=== PATIENT | female | born 1990 | race Caucasian/White ===

== ENCOUNTER → 2016-08-20 | Outpatient (CLI) | payer BC ==
[2016-08-20 15:18] LABS: BASO % 0.1 %; BASO ABS # 0.01 K/uL (0-0.2); COMPLETE YES; EOS % 1.1 %; HEMATOCRIT 39.8 % (37-47); IG% 0.2 %; LYMPH ABS # 1.24 K/uL (1.2-3.4); MEAN CELL VOLUME 78.8 fL (80-100); MEAN CORPUSCULAR HEMOGLOBIN 26.5 pg (25-34); MEAN CORPUSCULAR HGB CONC 33.7 g/dl (32-36); MEAN PLATELET VOLUME 10.9 fL (7.4-10.4); MONO % 5.4 %; NEUT % 78.2 %; PLATELET COUNT 178 K/uL (130-400); RED BLOOD COUNT 5.05 M/uL (4.2-5.4); WHITE BLOOD COUNT 8.27 K/uL (4.8-10.8)
[2016-08-20 15:46] LABS: URINE APPEARANCE CLEAR (CLEAR); URINE BILIRUBIN NEG (NEG); URINE COLOR DK YELLOW; URINE NITRITE NEG (NEG); URINE PH 6.5 (4.5-7.5); URINE SPECIFIC GRAVITY 1.023 (1.000-1.030); UROBILINOGEN NEG (NEG)
[2016-08-20 15:53] LABS: MANUAL MICROSCOPIC REQUIRED? NO; REVIEW REQ? NO
== END | disposition home or self-care (01) ==
LOC: C.LAB1850 12:57
PROVIDERS: ATTEND Obstetrics & Gynecology
DX: Z34.81 Encounter for supervision of other normal pregnancy, first trimester (principal)

== ENCOUNTER → 2016-08-20 | Outpatient (CLI) | payer BC ==
[2016-08-24 10:49] LABS: CHLAMYDIA TRACH RNA*** NOT DETECTED (NOT DETECTED); GC (NEIS GONORRHOEAE)RNA** NOT DETECTED (NOT DETECTED)
== END | disposition home or self-care (01) ==
LOC: C.LABSPEC 16:51
PROVIDERS: ATTEND Obstetrics & Gynecology
DX: Z34.81 Encounter for supervision of other normal pregnancy, first trimester (principal)

== ENCOUNTER → 2016-12-25 | Outpatient (CLI) | payer BC ==
[2016-12-25 14:38] LABS: HEMATOCRIT 32.8 % (37-47)
[2016-12-25 15:04] LABS: GTGD 50 Grams
[2016-12-25 16:13] LABS: URINE APPEARANCE TURBID (CLEAR); URINE BILIRUBIN NEG (NEG); URINE COLOR YELLOW; URINE EPITHELIAL CELL AUTO >30 /lpf (0-5); URINE NITRITE NEG (NEG); URINE PH >= 9.0 (4.5-7.5); URINE SPECIFIC GRAVITY 1.021 (1.000-1.030); UROBILINOGEN NEG (NEG)
[2016-12-25 16:15] LABS: MANUAL MICROSCOPIC REQUIRED? NO; REVIEW REQ? NO
[2016-12-25 16:16] LABS: SULFASALICYLIC ACID NEG (NEG)
== END | disposition home or self-care (01) ==
LOC: C.LAB1850 12:13
PROVIDERS: ATTEND Obstetrics & Gynecology
DX: Z34.82 Encounter for supervision of other normal pregnancy, second trimester (principal); Z3A.00 Weeks of gestation of pregnancy not specified

== ENCOUNTER → 2017-01-08 | Outpatient (CLI) | payer BC | END | disposition home or self-care (01) | LOC: C.LAB1850 08:13 | PROVIDERS: ATTEND Obstetrics & Gynecology | DX: O28.1 Abnormal biochemical finding on antenatal screening of mother (principal) ==

== ENCOUNTER → 2017-02-12 | Outpatient (CLI) | payer BC | END | disposition home or self-care (01) | LOC: C.LABSPEC 14:42 | PROVIDERS: ATTEND Obstetrics & Gynecology | DX: Z34.83 Encounter for supervision of other normal pregnancy, third trimester (principal) ==

== ENCOUNTER 2017-03-09 06:50 | Inpatient (IN) | payer BC ==
[~2017-03-09] VITALS: Ht 152.4 cm; Wt 71.8 kg
[2017-03-09] MEDS ORDERED: LACTATED RINGER'S 1000ML 1,000 ML IV PRN (07:44)
[2017-03-09] MEDS ORDERED: LACTATED RINGER'S 1000ML 1,000 ML IV SCH (07:44)
[2017-03-09] MEDS ORDERED: PENICILLIN G POTASSIUM IV 6 MU in DEXTROSE 5% 250ML 250 ML IV ONE (08:00)
[2017-03-09 08:09] LABS: HEMATOCRIT 34.3 % (37-47); HEMOGLOBIN 10.9 g/dL (12.0-16.0); MEAN CELL VOLUME 69.7 fL (80-100); MEAN CORPUSCULAR HEMOGLOBIN 22.2 pg (25-34); MEAN CORPUSCULAR HGB CONC 31.8 g/dl (32-36); PLATELET COUNT 181 K/uL (130-400); RED CELL DISTRIBUTION WIDTH SD 42.7 fL (36.4-46.3); WHITE BLOOD COUNT 12.19 K/uL (4.8-10.8)
[2017-03-09 09:28] VITALS: Ht 152.4 cm; Wt 71.8 kg
[2017-03-09] MEDS ORDERED: PRENTAB26 PO (09:34)
[2017-03-09] MEDS: PENICILLIN G POTASSIUM IV 3 MU in DEXTROSE 5% 100ML 100 ML IV PRN ×2 (13:11→17:49)
[2017-03-09] MEDS ORDERED: LACTATED RINGER'S 1000ML 500 ML IV PRN ×3 (17:07→22:09)
[2017-03-09] MEDS ORDERED: OXYTOCIN 30 UNITS/500ML NSS IV PRN (17:15)
[2017-03-09] MEDS ORDERED: BUPIVACAINE 0.25% 30 ML VIAL ONE (17:21)
[2017-03-09] MEDS ORDERED: EpHEDrine SULFATE INJ 50 MG/ML AMP ONE (17:21)
[2017-03-09] MEDS ORDERED: FENTANYL 2MCG/ML ROPIV 1.25MG/ML 100ML BAG EPI ONE (17:21)
[2017-03-09] MEDS ORDERED: FENTANYL CITRATE INJ 50 MCG/1 ML 2 ML VIAL ONE (17:22)
[2017-03-09] MEDS ORDERED: NALOXONE HCL INJ 1 MG in SODIUM CHLORIDE 0.9% 1000ML 1,000 ML IV PRN ×2 (18:25→22:09)
[2017-03-09] MEDS ORDERED: ONDANSETRON INJ 2 MG/ML 2 ML VIAL IV PRN ×2 (18:30→22:15)
[2017-03-09] MEDS ORDERED: NALOXONE HCL INJ 0.4 MG/1 ML VIAL/CARP IV PRN (18:30)
[2017-03-09] MEDS ORDERED: FENTANYL 2MCG/ML ROPIV 1.25MG/ML 100ML BAG EPI PRN (18:30)
[2017-03-09] MEDS ORDERED: NALBUPHINE HCL INJ 10 MG/ML 1ML AMP IV PRN ×2 (18:30→22:15)
[2017-03-09] MEDS ORDERED: DiphenhydrAMINE HCL 50 MG/ML VIAL IV PRN ×3 (18:30→22:15)
[2017-03-09] MEDS ORDERED: EpHEDrine SULFATE INJ 50 MG/ML AMP IV PRN ×2 (18:30→22:15)
[2017-03-09] MEDS ORDERED: PROMETHAZINE HCL INJ 6.25 MG in SODIUM CHLORIDE 0.9% 50ML 50 ML IV PRN ×2 (18:30→22:15)
[2017-03-09] MEDS ORDERED: LACTATED RINGER'S 1000ML 1,000 ML IV ONE (20:42)
[2017-03-09] MEDS ORDERED: CARBOPROST TROMETHAMINE 250 MCG/ML AMP ONE (20:44)
[2017-03-09] MEDS ORDERED: CEFAZOLIN IV 2,000 MG in SYRINGE 0 ML IV STA (20:50)
[2017-03-09] MEDS ORDERED: CITRIC ACID/SODIUM CITRATE 15 ML UDC ONE (20:58)
[2017-03-09] MEDS ORDERED: MoRPHine SULFATE PF 1 MG/ML 10 ML AMP/VIAL ONE (21:22)
[2017-03-09] MEDS ORDERED: ONDANSETRON INJ 2 MG/ML 2 ML VIAL ONE (21:47)
[2017-03-09] MEDS ORDERED: KETOROLAC TROMETHAMINE 30 MG/ML VIAL ONE (21:47)
[2017-03-09] MEDS ORDERED: OXYTOCIN INJ 10 UNITS/ML VIAL ONE (21:47)
[2017-03-09] MEDS ORDERED: PHENYLEPHRINE 100MCG/ML 5ML SYR ONE (21:47)
[2017-03-09] MEDS ORDERED: LIDOCAINE/EPINEPHRINE 2% 1:200,000 20 ML SDV ONE (21:47)
--- NOTE | 2017-03-09 21:57 | [facility] Post Operative Brief Note ---
Immediate Operative Summary Operative Date Mar 09, 2017. Pre-Operative Diagnosis 1. Term 2. Previous section 3. Failed Post-Operative Diagnosis Same as preop Procedure(s) Performed Repeat section Surgeon Dr. Caceres Pop Singer Surgeon(s) Linnea POON Estimated Blood Loss 800ML Findings viable male , Apgars 8/9, weight of 8 lbs, art/venous gasses pending, normal appearing tubes and ovaries bilaterally Fluids (cc crystalloids) 1400 Specimens 1. Cord blood 2. Cord blood gases 3. Placenta-EXAM Drains Bravo to gravity Anesthesia Epidural Complication(s) None Disposition L&D
[2017-03-09] MEDS ORDERED: SUPERCREAM 0.870 % 15GM JAR EXT PRN (22:00)
[2017-03-09] MEDS ORDERED: HYDROCORTISONE ACETATE 25 MG SUPP PR PRN (22:00)
[2017-03-09] MEDS ORDERED: LANOLIN OINT EXT PRN (22:00)
[2017-03-09] MEDS ORDERED: DIPHTHERIA/TETANUS/PERTUSSIS 0.5 ML SYR/VIAL IM. ONE (22:00)
[2017-03-09] MEDS ORDERED: BENZOCAINE 20% AER SPR 82.5 GM CAN EXT PRN (22:00)
[2017-03-09] MEDS ORDERED: NALOXONE HCL INJ 0.08 MG in SYRINGE 1.8 ML IV PRN (22:09)
[2017-03-09] MEDS ORDERED: SODIUM CHLORIDE 0.9% 1000ML 1,000 ML IV PRN (22:09)
[2017-03-09] MEDS ORDERED: NO NARCOTICS OR SEDATIVES SCH (22:15)
[2017-03-09] MEDS ORDERED: MoRPHine SULFATE 2 MG/ML CARP IV PRN (22:15)
[2017-03-09] MEDS ORDERED: MoRPHine SULFATE PF 1 MG/ML 10 ML AMP/VIAL EPI PRN (22:15)
[2017-03-09] MEDS ORDERED: NALOXONE HCL 0.4 MG/1 ML VIAL/CARP IV PRN (22:15)
[2017-03-09] MEDS ORDERED: MEPERIDINE HCL 25 MG/ML CARP IV PRN (22:15)
[2017-03-09] MEDS ORDERED: DC INTRASPINAL MORPHINE SCH (22:15)
[2017-03-10] VITALS (20 sets, daily range): BP systolic 103–115; BP diastolic 65–68; PULSE 71–92; TEMP 36.7–37.5; O2SAT 95–98
[2017-03-10] MEDS: OXYTOCIN INJ 20 UNITS in LACTATED RINGER'S 1000ML 1,000 ML IV SCH ×2 (00:04→08:23)
--- NOTE | 2017-03-10 00:55 | Anesthesia Procedure Note ---
Anesthesia Epidural Removal Nt Date & Time Mar 10, 2017 at 00:55 Vital Signs Pain Intensity: 8.0 Notes Mental Status: alert / awake / arousable, participated in evaluation Nausea / Vomiting: adequately controlled Pain: adequately controlled Airway Patency, RR, SpO2: stable & adequate BP & HR: stable & adequate Hydration State: stable & adequate Neuraxial Anesthesia: was administered Anesthetic Complications: no major complications apparent, pt satisfied with anesthetic care Epidural: removed without complications, with tip intact
--- NOTE | 2017-03-10 00:55 | Anesthesiology Progress Note ---
Anesthesia Post Op Note Date & Time Mar 10, 2017 at 00:55 Vital Signs Pain Intensity: 8.0 Notes Mental Status: alert / awake / arousable, participated in evaluation Pt Amnestic to Procedure: Yes Nausea / Vomiting: adequately controlled Pain: adequately controlled Airway Patency, RR, SpO2: stable & adequate BP & HR: stable & adequate Hydration State: stable & adequate Neuraxial Anesthesia: was administered, sensory block is resolving Anesthetic Complications: no major complications apparent
--- NOTE | 2017-03-10 03:06 | OPERATIVE REPORT ---
DATE OF OPERATION: 03/09/2017 PREOPERATIVE DIAGNOSES: 1. Term . 2. Previous section. 3. Failed vaginal after . POSTOPERATIVE DIAGNOSES: Same. PROCEDURE PERFORMED: Repeat low cervical transverse section. SURGEON: Nii Caceres MD ANESTHESIA: Epidural. FINDINGS: Viable male with Apgars of 8 and 9, weight of 8 pounds 0 ounces. Arterial and venous cord gases are pending. Normal appearing tubes and ovaries bilaterally. PROCEDURE IN DETAIL: The patient was taken to the operating room and after epidural anesthesia, was placed in the supine position and draped and prepped in the usual fashion. Pfannenstiel type incision through previous surgical scar was made. Underlying subcutaneous tissue was dissected down to the ventral abdominal fascia, which was nicked and opened in a horizontal manner. Preperitoneal fascia was dissected away until the peritoneal cavity was entered and opened in a vertical manner. The peritoneum overlying the uterus was elevated, opened in a semi-lunar fashion, the inferior margin of which was taken down creating the bladder flap. Uterus was entered sharply and extended in a semi-lunar fashion manually. Viable male was delivered. Cord was clamped and cut and the baby was passed off to pediatrics who was in attendance for the delivery. Cord gases, cord blood samples obtained. Placenta was delivered manually and the uterus was exteriorized. The uterine cavity was wiped cleaned of any residual blood tissue and/or clot. The uterine incision was then closed with 2 layers of 4-0 Vicryl, the first a running locking stitch, the second an imbricating stitch. Hemostasis was achieved and the uterus was returned to the pelvic cavity. The paracolic gutters were cleared bilaterally of any blood tissue and/or clot. The uterine incision was then copiously irrigated with 1000 mL of normal saline. Incision was inspected for hemostasis, which was present. Sponge and needle count was correct. The rectus muscle was then plicated in the midline with a running 2-0 Vicryl stitch. The fascia was closed laterally with a running 0 Vicryl suture. Subcutaneous tissue was irrigated with warm saline and the skin incision was closed with a 4-0 Vicryl subcuticular stitch. Sterile dressing was applied and patient was taken to the recovery room in satisfactory condition. I attest to the content of the Intraoperative Record and any orders documented therein. Any exception s are noted below.
[2017-03-10] MEDS: KETOROLAC TROMETHAMINE 30 MG/ML VIAL IV. PRN ×2 (05:07→11:14)
--- NOTE | 2017-03-10 05:45 | NUR ---
Patient up from bed , stood by the bed for about 2 minutes and sat back on the bed and dangling feet on bed side. Patient tolerated activity well
[2017-03-10] MEDS ORDERED: CEFAZOLIN IV 2,000 MG in SYRINGE 0 ML IV SCH (06:00)
--- NOTE | 2017-03-10 07:00 | OB/GYN Progress Note ---
FACILITIES SUPERVISOR Progress Note Date of Service Mar 10, 2017. Subjective conversation w/ patient, conversation w/ family, physical exam, chart review, lab review Ambulation: limited ambulation Voiding: saldana catheter in place Passing Gas: Yes Diet Tolerance: Clear Liquids Lochia: Small Feeding Type: Breast Feeding Review of Systems Constitutional: No fever, No chills, No sweats Respiratory: No cough, No wheezing, No shortness of breath Cardiac: No chest pain, No edema, No palpitations Abdomen: + pain, No nausea, No vomiting, No diarrhea Objective Vital Signs Date Time Temp Pulse Resp B/P (MAP) Pulse Ox O2 Delivery O2 Flow Rate FiO2 03/10/17 06:30 16 96 03/10/17 05:30 18 96 03/10/17 04:45 37.3 85 16 111/68 (82) 96 Room Air 03/10/17 04:30 18 96 03/10/17 03:30 16 97 03/10/17 02:30 18 96 03/10/17 01:30 18 97 03/10/17 00:30 37.5 71 16 115/67 (83) 97 Room Air 03/10/17 00:30 16 97 03/10/17 00:30 97 Room Air Physical Exam General Appearance: WELL-APPEARING, WD/WN, NO APPARENT DISTRESS Respiratory/Chest: chest non-tender, lungs clear, normal breath sounds, no respiratory distress, no accessory muscle use Cardiovascular: regular rate, rhythm, no edema, no murmur Abdomen: non tender, soft, no organomegaly Fundus: Firm Incision Description: Clean, Dry & Intact Extremities: no pedal edema, no calf tenderness Laboratory Results Last 24 Hours Test 03/09/17 07:54 03/10/17 06:28 White Blood Count 12.19 K/uL Red Blood Count 4.92 M/uL Hemoglobin 10.9 g/dL Hematocrit 34.3 % Mean Corpuscular Volume 69.7 fL Mean Corpuscular Hemoglobin 22.2 pg Mean Corpuscular Hemoglobin Concent 31.8 g/dl RDW Standard Deviation 42.7 fL RDW Coefficient of Variation 17.0 % Platelet Count 181 K/uL Assessment and Plan Continue Routine Care: 26 female now P2 postop day 1, uncomplicated on 03/09. GBS+/B+/RI. Vitals reviewed and WNL. Hgb was 10.9 on 03/09 and 8.9 on 03/10. Patient doing well clinically. Continue routine pp care; monitor lochia, control pain with Tylenol/ibuprofen, encourage ambulation, support. Resident Physician Supervision Note: I interviewed and examined the patient. Discussed with Dr. Santiago and agree with findings and plan as documented in the note. Any exceptions or clarifications are listed here: Discussed surgery and finding with patient and , routine post C/S care Documented By: Nii Caceres
[2017-03-10 07:05] LABS: HEMOGLOBIN 8.9 g/dL (12.0-16.0); MEAN CELL VOLUME 68.6 fL (80-100); MEAN CORPUSCULAR HGB CONC 30.7 g/dl (32-36); PLATELET COUNT 172 K/uL (130-400); RED CELL DISTRIBUTION WIDTH CV 16.9 % (11.5-14.5); RED CELL DISTRIBUTION WIDTH SD 41.9 fL (36.4-46.3); WHITE BLOOD COUNT 14.89 K/uL (4.8-10.8)
[2017-03-10 07:30] LABS: BASO % 0.1 %; BASO ABS # 0.01 K/uL (0-0.2); EOS % 0.1 %; EOS ABS # 0.01 K/uL (0-0.5); IG# 0.08 K/uL (0.00-0.02); LYMPH % 10.2 %; LYMPH ABS # 1.52 K/uL (1.2-3.4); MONO % 6.7 %; NEUT % 82.4 %; NEUT ABS # 12.27 K/uL (1.4-6.5)
[2017-03-10] MEDS: PRENATAL VITAMIN TAB PO SCH (08:23)
[2017-03-10] MEDS: FERROUS SULFATE 325 MG TAB PO SCH (08:23)
--- NOTE | 2017-03-10 10:35 | NUR ---
Met with patient and father of the baby at this time. Assisted mother to get the infant latched properly onto the breast. After a couple of attempts and repositioning the infant was latched properly and fed for 10minutes on the right side. The mother was able to latch the infant onto the left breast with minimal assistance for 15minutes. Talked to mother during the feedings about pumping and breast milk storage. Proper cleaning of pump supplies was also discussed. The patient states that this is the first time that she will be pumping. Patient does state that she has a pump at home.Mother states that she had problems with oversupply with her first child. Discussed positioning for oversupply and hand expressing a little bit prior to latching infant onto the breast. Patient was also shown contact information for consultants in the area if she were need assistance after discharge. Dian Ramirez RN, CLC
[2017-03-10] MEDS ORDERED: KETOROLAC TROMETHAMINE 30 MG/ML VIAL IV. PRN (15:00)
[2017-03-10] MEDS ORDERED: DiphenhydrAMINE HCL 50 MG/ML VIAL IV PRN (15:00)
[2017-03-10] MEDS ORDERED: ONDANSETRON INJ 2 MG/ML 2 ML VIAL IV PRN (15:00)
[2017-03-10] MEDS ORDERED: OXYCODONE/ACETAMINOPHEN 5-325 TAB PO PRN (15:00)
[2017-03-10] MEDS: IBUPROFEN 600 MG TAB PO PRN ×2 (16:34→21:44)
[2017-03-10] MEDS: OXYCODONE/ACETAMINOPHEN 5-325 TAB PO PRN (21:43)
[2017-03-10] MEDS: SENNA 8.6 MG TAB PO SCH (21:44)
[2017-03-10] MEDS: MAGNESIUM HYDROXIDE SUSP 30 ML UDC PO SCH (21:44)
[2017-03-10] MEDS ORDERED: BISACODYL 5 MG TABEC PO ONE (22:00)
[2017-03-11 06:54] LABS: HEMATOCRIT 26.7 % (37-47); HEMOGLOBIN 8.5 g/dL (12.0-16.0)
--- NOTE | 2017-03-11 06:55 | OB/GYN Progress Note ---
SAWMILL MANAGER Progress Note Date of Service Mar 11, 2017. Subjective conversation w/ patient, physical exam, chart review, lab review Ambulation: ambulating normally Voiding: no voiding problems Passing Gas: Yes Diet Tolerance: Regular Diet Lochia: Moderate Feeding Type: Breast Feeding Pain: 5/10 abdominal pain controled in the evening with Percocet Review of Systems Constitutional: No fever, No chills, No sweats Respiratory: No cough, No shortness of breath Cardiac: No chest pain, No edema, No palpitations Abdomen: No pain, No nausea, No vomiting Female : No dysuria, No urinary frequency Objective Vital Signs Date Time Temp Pulse Resp B/P (MAP) Pulse Ox O2 Delivery O2 Flow Rate FiO2 03/10/17 23:30 Room Air 03/10/17 23:30 36.9 88 18 110/67 (81) Room Air 03/10/17 20:00 36.8 92 18 103/65 (78) 97 Room Air 03/10/17 16:00 98 Room Air 03/10/17 16:00 36.7 87 18 107/67 (80) 98 Room Air 03/10/17 14:15 18 96 03/10/17 13:15 18 97 03/10/17 12:15 16 96 03/10/17 11:20 36.8 82 18 113/66 (82) 98 Room Air 03/10/17 11:15 18 98 03/10/17 10:15 18 97 03/10/17 09:15 16 95 03/10/17 08:15 97 Room Air 03/10/17 08:15 37.2 79 16 106/66 (79) 97 Room Air 03/10/17 08:15 16 97 03/10/17 07:15 16 96 Physical Exam General Appearance: WELL-APPEARING, WD/WN, NO APPARENT DISTRESS Respiratory/Chest: chest non-tender, lungs clear, normal breath sounds, no respiratory distress, no accessory muscle use Cardiovascular: regular rate, rhythm, no edema, no murmur Abdomen: soft Fundus: Firm, Relation to Umbilicus (at the level of the umbillicus ) Extremities: no calf tenderness Laboratory Results Last 24 Hours Test 03/11/17 06:34 Assessment and Plan Post-Op Day Number: 2 Continue Routine Care: 26 yo female now 2 post op day 2 uncomplicated on 03/09. B+/GBS+/RI. Vitals reviewed and WNL. Hgb on 03/09 10.9, 03/10 8.9, today 8.5. No signs or symptoms of anemia. Pt is doing well clinically. Continue routine pp care; monitor lochia, control pain, encourage ambulation, provide support. Resident Physician Supervision Note: I was present with Dr. keys during the history and exam. I discussed the case with the resident and agree with the findings and plan as documented in the note. Any exceptions or clarifications are listed here: [None] Documented By: Aníbal Daigle
[2017-03-11 07:36] VITALS: BP 114/58; PULSE 84; TEMP 37.1; O2SAT 97
[2017-03-11] MEDS: IBUPROFEN 600 MG TAB PO PRN ×3 (07:48→19:53)
[2017-03-11] MEDS: FERROUS SULFATE 325 MG TAB PO SCH (07:48)
[2017-03-11] MEDS: PRENATAL VITAMIN TAB PO SCH (07:48)
[2017-03-11 15:30] VITALS: BP 108/68; PULSE 81; TEMP 36.7
[2017-03-11] MEDS: MAGNESIUM HYDROXIDE SUSP 30 ML UDC PO SCH (21:36)
[2017-03-11] MEDS: SENNA 8.6 MG TAB PO SCH (21:36)
[2017-03-11 23:30] VITALS: BP 110/69; PULSE 76; TEMP 36.8
[2017-03-12] MEDS: OXYCODONE/ACETAMINOPHEN 5-325 TAB PO PRN (04:11)
--- NOTE | 2017-03-12 06:59 | Progress Note ---
Subjective Mar 12, 2017. Subjective conversation w/ patient Ambulation: ambulating normally Voiding: no voiding problems Passing Gas: Yes (a little less yesterday but dayne regular diet) Diet Tolerance: Regular Diet Lochia: Small Feeding Type: Breast Feeding Pain: using percocet at night and helps with pain Comment: pt not using scds and told she should be wearing whenever she is in bed to prevent blood clots. Objective Vital Signs Date Time Temp Pulse Resp B/P (MAP) Pulse Ox O2 Delivery O2 Flow Rate FiO2 03/11/17 23:30 36.8 76 18 110/69 (83) Room Air 03/11/17 23:30 Room Air 03/11/17 15:30 Room Air 03/11/17 15:30 36.7 81 18 108/68 (81) Room Air 03/11/17 08:10 Room Air 03/11/17 07:36 37.1 84 18 114/58 (76) 97 Room Air Physical Exam General Appearance: WELL-APPEARING, WD/WN, NO APPARENT DISTRESS Respiratory/Chest: lungs clear Cardiovascular: regular rate, rhythm Abdomen: non tender, soft Fundus: Firm, Relation to Umbilicus (2 down) Incision Description: Clean, Dry & Intact Extremities: non-tender Assessment and Plan Post-Op Day#: 3 Continue Routine Care: stable, routine care. desires d/c home. f/u 6 weeks pp check, instructions reviewed.
[2017-03-12] MEDS ORDERED: MTR600X PO (07:37)
[2017-03-12] MEDS ORDERED: OXYC-57 PO (07:37)
--- NOTE | 2017-03-12 07:38 | Discharge Instructions ---
Discharge Instructions Date of Service Mar 12, 2017. Admission Reason for Admission: 40 Weeks Gestation Of , Normal Labor, Discharge Discharge Diagnosis / Problem: after delivery Discharge Goals Goal(s): Routine recovery after Medications Continue Dispensed Medications: supercream, dermaplast, tucks, lansinoh Activity Recommendations Activity Limitations: as noted below . Instructions / Follow-Up Instructions / Follow-Up ACTIVITY RECOMMENDATIONS: * Gradual return to full activity over the next 2-3 weeks. * No lifting - nothing heavier than baby over the next 2-3 weeks. * Do not engage in vigorous exercise, sexual activity or sports until cleared by your physician. * Do not drive or operate any motorized equipment until cleared by your physician. * You may shower/bathe daily. MEDICATIONS: For discomfort or pain, you may use Acetaminophen (Tylenol), Ibuprofen (Advil), or Naproxen (Aleve) following the package directions. For constipation you may use Colace following the package directions. BREAST CARE: If you are not breast feeding: * Wear a supportive bra 24 hours a day for one to two weeks. * Avoid stimulating your breasts and nipples as much as possible during the first few weeks after delivery. * When taking a shower, have the warm water hit your back, not breasts. * When your breasts feel full, apply ice packs. Usually three to four times a day helps ease the discomfort. * Take a mild pain medication (Tylenol / Motrin) when you are uncomfortable. If breast feeding: * Use breast milk to lubricate nipples. Lansinoh cream may be used for sore nipples. You do not need to remove cream prior to breast feeding. If using a different brand of cream, check the label for directions regarding removal of cream prior to nursing. * Wear a supportive bra. * If having problems with breasts or breast feeding, call a [employer] consultant or your health care provider. SPECIAL CARE INSTRUCTIONS: When you are discharged from the hospital, it is important for you to follow the instructions listed below: * During the first week at home, you should be able to care for yourself and your baby. In addition, the usual light household activities are encouraged. * Limit your activities to the way you feel. Do not try to clean the house or move furniture. Be sensible. * If you actively engage in sports and have done so up until the time of your delivery, you may resume these activities as soon as you feel able. This may take up to one month or even longer. Use good judgment. * Continue to take your vitamins for at least six weeks after the of your baby. * Your diet need not be limited unless you were on a special diet before your delivery. Breast-feeding mothers need around 2500 calories per day and at least 64-80 ounces of fluid per day (8 to 10 glasses). * You should eat foods from the four major food groups. Crash diets or fad diets are to be avoided. Eating lean meats, fresh fruits and vegetables, low-fat dairy products, high fiber foods and a regular exercise program, will help you get back to your pre- weight without putting your health at risk. * Constipation is sometimes a problem after delivery. Take a mild laxative as needed. If breast feeding, Milk of Magnesia is acceptable to use. You may use a suppository or Fleets enema. * A daily shower or tub bath is suggested. Wash incision daily with warm soapy water and pat dry. It doesn't need to be covered unless drainage is present. * A bloody vaginal discharge will usually continue until around four weeks . A small amount of bleeding may continue for as long as six weeks. Vaginal discharge changes from the bright red bleeding after delivery to pink then brownish and finally yellowish-pink before becoming white and disappearing. * Bleeding may increase with activity. Your first period may come in 4-8 weeks. If you are breast feeding, your period may be delayed even longer. * Butters (sex) can begin whenever both you and your partner feel comfortable and do not have any form of genital infection. It is recommended that you wait at least six weeks for internal and external healing to occur. If you have questions, please talk to your health care practitioner. A condom should be used to prevent infection and . * Foreplay, gentle intercourse and lubrication is very important the first several times to prevent pain. A water-based lubricant such as K-Y jelly or Astroglide may be used. * If you have RH negative blood and your baby is RH positive, you will receive RHOGAM by injection prior to discharge. The nurse will give you a card to keep with you that has the date and place that you received RHOGAM after delivery. * During your care, you had a Rubella screen done to check for the presence of rubella antibodies in your blood. If your test was negative, you will receive a Rubella vaccine prior to discharge. This vaccine may cause a fever, soreness at the injection site and flu-like symptoms. If these symptoms persist, notify your health care practitioner. is not advised for one month after a Rubella vaccine. * Verbalizes understanding of car seat law as reviewed with patient nursing. * Car Seat hand-out given and reviewed with patient by nursing. * Shaken baby information reviewed with patient by nursing. Call you doctor if: * Heavy bleeding (saturating several pads an hour) or passing clots the size of your fist. * A fever >101 degrees F (38.3 degrees C) on two occasions four hours apart and /or chills. * Unusual pain in the pelvic or vaginal areas. * Call the doctor for any increased redness, drainage or swelling around the incision and any pain unrelieved by prescribed pain medication. * "Baby Blues" lasting longer than two weeks. If you have any questions or concerns, call your health care practitioner at . FOLLOW UP VISIT: * Please call the office at to schedule a 6 week examination. It is important you keep this appointment. It is important for you to make arrangements for either yearly or twice yearly check-ups thereafter. Current Hospital Diet Patient's current hospital diet: Regular OB Diet Discharge Diet Recommended Diet: Regular Diet Procedures Procedures Performed: Repeat section Pending Studies Studies pending at discharge: no Medical Emergencies . Who to Call and When: Medical Emergencies: If at any time you feel your situation is an emergency, please call [phone] immediately. . Non-Emergent Contact Non-Emergency issues call your: [employer] Expert . . "Provider Documentation" section prepared by Jazmyn Landers. . VTE Core Measure Inpt VTE Proph given/why not?: SCD's [place] Drug Monitoring Program Search Results: patient reviewed within database, no issues identified
[2017-03-12] MEDS: FERROUS SULFATE 325 MG TAB PO SCH (07:49)
[2017-03-12] MEDS: PRENATAL VITAMIN TAB PO SCH (07:49)
[2017-03-12 08:00] VITALS: BP 112/71; PULSE 64; TEMP 36.5; O2SAT 98
[2017-03-12] MEDS: IBUPROFEN 600 MG TAB PO PRN (10:17)
[2017-03-12 11:15] VITALS: BP_DIAS 71; PULSE 64; TEMP 36.5
--- NOTE | 2017-03-16 09:21 | DISCHARGE SUMMARY ---
ADMITTING DIAGNOSES: 1. Active labor at 40+ weeks gestational age. 2. Previous section. DISCHARGE DIAGNOSES: 1. Same. 2. Positive antibody screen. 3. Failed vaginal after section. PROCEDURES PERFORMED: Repeat low cervical transverse section. DISCHARGE MEDICATIONS: 1. Percocet 5/325 1-2 p.o. q. 4-6 hours p.r.n. pain. 2. Motrin 600 mg p.o. q. 6 hours p.r.n. pain. ADMISSION HISTORY: The patient is a 26-year-old 2, para 1 with an EDC of March 05 at 40+ weeks gestational age who presented to labor and delivery in early active labor. The patient states her contractions had begun at approximately 0300 hours on day of admission. She denied rupture of membranes or vaginal bleeding. The patient's first had ended in a section at another institution for failure to progress. The calculated success rate for a for the patient was 44.8%. The patient had been counseled on the risks and benefits of a versus a repeat section and desired a trial of labor. The patient had had a benign course. Laboratory values showed a blood type of B positive, antibody negative, rubella immune, hepatitis B negative. Her cystic fibrosis screen was positive. She had a negative quad screen. She had a normal 1-hour Glucola x2 and a positive third trimester beta strep culture. OBSTETRICS: section x1. GYNECOLOGIC: None. MEDICAL: None. SURGICAL: None. ALLERGIES: No known drug allergies. SOCIAL HISTORY: No smoking. FAMILY HISTORY: Noncontributory. REVIEW OF SYSTEMS: As per HPI. ADMISSION PHYSICAL EXAMINATION: GENERAL: Showed a gravid female in no acute distress. VITAL SIGNS: Blood pressure 108/70 and a weight of 157 pounds. HEENT: Unremarkable. NECK: Supple. LUNGS: Clear. HEART: With a regular rhythm and rate. ABDOMEN: Gravid, vertex, positive heart tones, estimated weight of 8 pounds. PELVIC: Shows the cervix to be 2 cm dilated, 90% effaced, -2 station. EXTREMITIES: Showed no deep calf tenderness. NEUROLOGIC: Grossly intact. ADMISSION LABORATORY VALUES: Showed an H&H of 10.9 and 34.3, positive antibody for Jka antigen. HOSPITAL COURSE: The patient was deemed to be in active labor and was admitted. Her type and screen was done per protocol. This is where the positive antibody screen was noted. The patient had had a negative antibody screen at her new OB visit. The patient denied any vaginal bleeding during the . She never had any blood transfusions and she denied any IV drug use. Because of the positive antibody screen, the blood was sent to the [facility] for an antibody titer. Pediatric was notified of the positive antibody screen. The patient was observed and started on penicillin for the positive status. She had progressed to 5 cm dilated, 100% effaced, but the vertex was not in the pelvis at a -3 station. Three hours later or six hours after admission, there had been no cervical change. Tracing remained category 1. She had artificial rupture of membranes for clear fluid. At this point, the patient was becoming more uncomfortable. Anesthesia was consulted and an epidural was placed. Following placement of the epidural, Pitocin was initiated per protocol for secondary arrest of dilatation. The patient continued on the Pitocin and adequate contractions were deemed. Twelve hours after admission, the patient had not progressed past 5 cm and arrest of dilatation was diagnosed as such. The patient was taken to the operating room where she underwent a repeat low transverse section for failed . Findings from this procedure revealed a viable male with Apgars of 8 and 9 and weight of 8 pounds 0 ounces, normal-appearing tubes and ovaries bilaterally. Postoperatively, the patient did well. Bravo catheter was removed on the first postoperative day. H&H came back at 8.9 and 29.0. Antibody titer from the [facility] could not be done secondary to the low dilutional value. The baby did well. Baby was discharged home on the third postoperative day with the routine discharge instructions and the prescriptions for the medications as listed as above. She will follow up in the office for a postoperative check, but as always, she was instructed to call with any questions, problems or difficulties.
== END 2017-03-12 12:20 | disposition home or self-care (01) | DRG 766 ==
LOC: C.OPB 06:50 → C.LD 06:50 → C.OPB 07:53 → C.OBG 03-10 00:16
PROVIDERS: ADMIT Obstetrics & Gynecology; ATTEND Obstetrics & Gynecology
PROC: 10D00Z1 Extraction of Products of Conception, Low, Open Approach (ICD-10-PCS; principal; 2017-03-09 21:15)
DX: O66.41 Failed attempted vaginal birth after previous cesarean delivery (principal); Z37.0 Single live birth; O34.211 Maternal care for low transverse scar from previous cesarean delivery; O42.92 Full-term premature rupture of membranes, unspecified as to length of time between rupture and onset of labor; O69.81X0 Labor and delivery complicated by cord around neck, without compression, not applicable or unspecified; O48.0 Post-term pregnancy; Z3A.40 40 weeks gestation of pregnancy; O66.5 Attempted application of vacuum extractor and forceps; Z14.1 Cystic fibrosis carrier; O99.824 Streptococcus B carrier state complicating childbirth

== ENCOUNTER 2019-12-29 05:39 | Inpatient (IN) ==
--- NOTE | 2019-12-28 13:50 | History & Physical Report ---
Date of Service December 28, 2019 Assessment & Plan (1) Previous delivery affecting , antepartum: Admission and Anticipated Discharge Date Admission Date: Repeat section and bilateral tubal ligation The patient was counseled to the nature of the procedure including alternatives such as labor. Risks were discussed including bleeding infection injury to bowel bladder ureter vessels and even baby. The risks of internal organ injury were discussed as being higher with prior sections. Deep Vein Thrombosis, pulmonary embolus and breakdown of the incision discussed. Deep vein thrombosis pulmonary embolus hernia and failure of the incision to heal were discussed Failure rates of tubal ligations discussed Patient verbalized understanding of this and was given ample time to ask questions History of Present Illness Primary Care Provider: NO PCP 39 weeks gestation 2 prior sections presents for repeat se ction discussion complicated by the following of an antibody however this issue resolved patient also was has a tubal ligation Allergies Allergy/AdvReac Type Severity Reaction Status Date / Time No Known Allergies Allergy Verified 12/28/19 13:40 Home Medications Home Medications Medication Instructions Recorded Confirmed Type prenat.vits,vijaya,seg-qksj-kfldg 1 tab PO QAM 05/25/19 12/28/19 History Patient History Medical History (Updated 12/27/19 @ 12:22 by Haley Daugherty RN) 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 REQUIRED ANTIBIOTIC MONTHLY DURING D/T GBS GERD (gastroesophageal reflux disease) Varicella vaccine Surgical History (Updated 12/27/19 @ 12:23 by Haley Daugherty RN) H/O section X 2 Nausea and vomiting after administration of anesthetic agent Family History Mother Diabetes Dyslipidemia Thyroid disease Grandmother (Maternal) Cervical cancer Social History Smoking Status: Never smoker Second Hand Exposure: No; Hx Alcohol Use: No Hx Substance Use: No Preferred Language: Swedish 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 Beliefs That Will Affect Care: None marital status: marital status details: Venkat Walker (29) [phone] Current Living Situation: Family Current Living Situation Comment: lives with spouse and children, mother in law lives with them, 3 dogs Feels Safe at Home: Yes Assistive Devices: None Physical Exam Constitutional: WD/WN, vitals as above Respiratory: normal respiratory effort, lungs clear to auscultation Cardiovascular: RRR, no murmur, no edema Gastrointestinal (Abdomen): normal bowel sounds, soft, nontender, no hepatosplenomegaly Genitourinary: OB Exam Abdomen: + heart tones (144) Coding Level of Care Code None Diagnoses Previous delivery affecting , antepartum O34.219
[2019-12-29] MEDS ORDERED: LACTATED RINGER'S 1,000 ML IV SCH ×3 (05:45→10:23)
[2019-12-29] MEDS ORDERED: ceFAZolin 2,000 MG in SYRINGE 0 ML IV SCH (06:00)
[2019-12-29] MEDS ORDERED: CITRIC ACID/SODIUM CITRATE 15 ML UDC PO SCH (06:00)
[2019-12-29 06:56] LABS: Basophils # (auto) 0.01 K/uL (0-0.2); Basophils % (auto) 0.1 %; Eosinophils # (auto) 0.05 K/uL (0-0.5); Eosinophils % (auto) 0.5 %; Hematocrit (blood only) 31.8 % (37-47); Hemoglobin 10.1 g/dL (12.0-16.0); Immature Granulocytes # (auto) 0.22 K/uL (0.00-0.02); Immature Granulocytes % (auto) 2.1 %; Lymphocytes # (auto) 1.93 K/uL (1.2-3.4); Lymphocytes % (auto) 18.6 %; Mean Corpuscular Volume 69.3 fL (80-100); Mean Platelet Volume 10.4 fL (7.4-10.4); Monocytes # (auto) 1.01 K/uL (0.11-0.59); Monocytes % (auto) 9.7 %; Neutrophils # (auto) 7.16 K/uL (1.4-6.5); Platelet Count 208 K/uL (130-400); RDW Coefficient of Variation 17.2 % (11.5-14.5); RDW Standard Deviation 43.1 fL (36.4-46.3); Red Blood Count 4.59 M/uL (4.2-5.4); White Blood Count 10.38 K/uL (4.8-10.8)
[2019-12-29 07:02] LABS: Mean Corpuscular Hgb Conc 31.8 g/dL (32-36)
--- NOTE | 2019-12-29 07:18 | History & Physical Bridge Note ---
Date of Service December 29, 2019 History & Physical Bridge Note I have examined the patient, reviewed the History & Physical and in the interval since the performance of the History & Physical I have noted the following changes of clinical significance: no changes noted
[2019-12-29] MEDS ORDERED: KETOROLAC 30 MG/ML VIAL IV PRN (07:23)
[2019-12-29] MEDS ORDERED: MoRPHine SULFATE 2 MG/ML CARP IV PRN (07:23)
[2019-12-29] MEDS ORDERED: NALOXONE HCL 0.4 MG/1 ML VIAL/CARP IV PRN (07:23)
[2019-12-29] MEDS ORDERED: MEPERIDINE HCL 25 MG/ML CARP/VIAL IV PRN (07:23)
[2019-12-29] MEDS ORDERED: PROMETHAZINE HCL 6.25 MG in SODIUM CHLORIDE 0.9% 50 ML IV PRN (07:23)
[2019-12-29] MEDS ORDERED: HYDROmorphone INJ 0.5 MG/0.5 ML SYR IV PRN (07:23)
[2019-12-29] MEDS ORDERED: NALOXONE HCL 1 MG in SODIUM CHLORIDE 0.9% 1000ML 1,000 ML IV PRN (07:23)
[2019-12-29] MEDS ORDERED: MoRPHine SULFATE PF 1 MG/ML 10 ML AMP/VIAL INT SPINAL ONE (07:23)
[2019-12-29] MEDS ORDERED: diphenhydrAMINE 50 MG/ML VIAL IV PRN (07:23)
[2019-12-29] MEDS ORDERED: LACTATED RINGER'S 500 ML IV PRN (07:23)
[2019-12-29] MEDS ORDERED: ePHEDrine sulfate 50 MG/ML AMP IV PRN (07:23)
[2019-12-29] MEDS ORDERED: NALOXONE HCL 0.08 MG in SYRINGE 1.8 ML IV PRN (07:23)
[2019-12-29] MEDS ORDERED: ONDANSETRON INJ 2 MG/ML 2 ML VIAL IV PRN ×2 (07:23→10:23)
--- NOTE | 2019-12-29 07:26 | Anesthesiology Consultation ---
Date of Service December 29, 2019 Assessment & Plan (1) Encounter for pre-operative examination: Chart Review Chart Review: Acceptable Risk for Surgery and Patient NOT seen in Pre Admission Testing Consults Requested none ASA ASA2 Proposed Anesthesia Anesthesia Type: Spinal (+ intrathecal narcotics) Risk / Benefits Reviewed With: PT / POA / Parent / Guardian, Accepts Plan and Informed Consent Obtained History Surgery Operation Date: 12/29/19 07:30 Proposed Procedures p Section, - Trang Daigle MD, FACOG s Post Bilateral Tubal Ligation in LD - Trang Daigle MD, FACOG Height/Weight Height: 5 ft Weight: 81.647 kg Allergies Allergy/AdvReac Type Severity Reaction Status Date / Time No Known Allergies Allergy Verified 12/28/19 13:40 Medications Home Medications Medication Instructions Recorded Confirmed Last Taken prenat.vits,vijaya,bow-dwjz-yafyl 1 tab PO QAM 05/25/19 12/29/19 1 Day Ago ~12/28/19 1 NPO Date Last Intake of Fluids: 12/28/19 Time Last Intake of Fluids: 23:00 Date Last Intake of Solids: 12/28/19 Time Last Intake of Solids: 18:00 Past Medical History Medical History 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 REQUIRED ANTIBIOTIC MONTHLY DURING D/T GBS GERD (gastroesophageal reflux disease) Varicella vaccine Exercise / Class Metabolic Activity II 4-5 Yardwork/Stairs/Walk up hill Past Family History Family History Mother Diabetes Dyslipidemia Thyroid disease Grandmother (Maternal) Cervical cancer Past Surgical History Surgical History H/O section X 2 Nausea and vomiting after administration of anesthetic agent Past Anesthesia History No Hx of Anesthesia Complications and No Family Hx of Anesthesia Complications History of PONV No Hx of PONV and No Hx of Motion Sickness Social History Smoking Status: Never smoker Do You Dip or Chew Tobacco: No Hx Alcohol Use: No Hx Substance Use: No substance use type: does not use Physical Exam Vital Signs Last Vital Signs Temp 36.6 C 12/29/19 05:56 Pulse 81 12/29/19 07:04 Resp 18 12/29/19 05:56 BP 123/76 12/29/19 07:04 ENMT Mouth: no dentition abnormality Thyromental Distance: > or= 3.5 Finger Breadths Mallampati Class: II Neck normal visual inspection Respiratory normal respiratory effort Auscultation: lungs clear to auscultation bilaterally Cardiovascular Rate/Rhythm: regular rate and regular rhythm Psychiatric Orientation: alert Testing Laboratory Results 12/29/19 05:59
[2019-12-29] MEDS ORDERED: MoRPHine SULFATE PF 1 MG/ML 10 ML AMP/VIAL ONE (07:27)
[2019-12-29] MEDS ORDERED: ONDANSETRON INJ 2 MG/ML 2 ML VIAL ONE (07:27)
[2019-12-29] MEDS ORDERED: OXYTOCIN 10 UNITS/ML VIAL ONE (07:27)
[2019-12-29] MEDS ORDERED: fentaNYL citrate 100 MCG/2 ML VIAL ONE (07:27)
[2019-12-29] MEDS ORDERED: SODIUM CHLORIDE 0.9% 1000ML 1,000 ML IV SCH (07:30)
[2019-12-29] MEDS ORDERED: NO NARCOTICS OR SEDATIVES SCH (07:30)
[2019-12-29 08:33] LABS: Base Excess Cord Arterial Bld -2.3 mEq/L (-9-1.8); CO2 Cord Arterial Blood 39 mmHg (39.1-73.5); HCO3 Cord Arterial Blood 23 mmol/L (19.7-28.5); PO2 Cord Arterial Blood 30 mmHg (4.1-31.7); pH Cord Arterial Blood 7.38 (7.1-7.38)
--- NOTE | 2019-12-29 08:41 | Operative Report ---
PG Post Operative Report Pre & Post Diagnosis Operation Date: 12/29/19 07:30 Pre-Op Diagnosis: Repeat Caesarean Section;Requests Permanent Sterilization Post-Op Diagnosis: Same;delivery of a live female child at 0757 I identified the patient and participated in the time-out.: Yes Procedure Operation Date: 12/29/19 07:30 Actual Procedures p Section, - Trang Daigle MD, FACOG s Post Bilateral Tubal Ligation in LD - Trang Daigle MD, FACOG Surgeon Trang Daigle MD, FACOG Distribution Field Technician Dr. Lawrence Estimated Blood Loss 400 Findings Consistent with Post-Op Diagnosis Specimens cord gases and blood Description of Procedure Regional anesthetic was given by anesthesia a Bravo catheter placed in her bladder by nursing patient was prepped and draped appropriate antibiotics were given preoperatively Pickups with teeth were used to test the skin site and it was found adequate for incision scalpel used to make a Pfannenstiel incision cutting down through subcutaneous fat through the fascia fascia was then dissected laterally with the curved Kinney's fascia was released superiorly and inferiorly from the rectus muscles with the curved Kinney scissors, rectus muscle split peritoneal cavity entered in a superior location. Opening enlarged to allow exposure bladder retractor placed. the uterus was extremely thin and we could see movement through the peritoneum in The lower uterine segment I did not need to make a bladder flap as we made a relatively higher incision to avoid the bladder and then hysterotomy incision extended in the usual fashion with the national van owner operator's this was made with scalpel entry was actually done bluntly with the national van owner operator's finger finger hysterotomy incision extended with the national van owner operator's finger in the usual fashion baby was delivered then by flexion of the head. no excessive force used and pressure from the pharmaceutical assistant on the abdomen mouth and then nares were suctioned baby was then delivered fully without difficulty without excessive force live vigorous cord clamped and cut cord gases obtained cord blood obtained placenta removed manually within ensured all placenta removed with a moist lap sponge uterus exteriorized IV Pitocin had been started by anesthesia and uterine tone improved. The uterus was closed in 2 layers first layer and 0 Monocryl running locked second layer 0 Monocryl nonlocked after generous irrigation and suction of the cul-de-sac and bladder flap regions hemostasis was excellent Tubal ligation was then performed by using a Leeton to grasp the right fallopian tube in the isthmic portion it was then tied with 0 chromic on proximal and distal ends of the Dominick grasping and then a second tie was placed below this tubal segment was then cut out with Metzenbaums and sent to pathology hemostasis was excellent the exact same process was then repeated on the left when the uterus was placed back in the peritoneal cavity both sites were inspected on the tubal ligation areas were hemostatic uterus was placed back in the peritoneal cavity and hemostasis was excellent rectus muscles were inspected and found to be dry fascia closed with 0 Vicryl subcutaneous fat closed with 3-0 Vicryl prior to this subcutaneous fat was irrigated skin closed with 4-0 subcuticular Monocryl incision Steri-Stripped urine was clear at the end of the procedure I attest to the content of the Intraoperative Record and any orders documented therein. Any exceptions are noted below.
--- NOTE | 2019-12-29 08:48 | Anesthesiology Progress Note ---
Date of Service December 29, 2019 Anesthesia Post Procedure Vital Signs Vital Signs: Temp Pulse Resp BP Pulse Ox 12/29/19 08:44 72 98 12/29/19 08:39 68 116/60 98 12/29/19 07:04 81 123/76 12/29/19 05:56 36.6 C 18 12/29/19 05:48 82 115/71 Transfer of Care Handoff Completed per policy Notes Mental Status: alert / awake / arousable Nausea / Vomiting: adequately controlled Pain: adequately controlled Airway Patency, RR, SpO2: stable & adequate BP & HR: stable & adequate Hydration State: stable & adequate Neuraxial Anesthesia: was administered and sensory block is resolving Anesthetic Complications: no major complications apparent and Pt Satisfied with anesthetic care
[2019-12-29 08:49] LABS: Base Excess Cord Venous Blood -2.7 mEq/L (-7.7-1.9); Cord Venous Blood HCO3 22 mmol/L (18.4-26.8); Cord Venous Blood PCO2 38 mmHg (30.4-57.2); Cord Venous Blood PO2 30 mmHg (14.1-43.3); Cord Venous Blood pH 7.38 (7.20-7.44)
[2019-12-29] MEDS ORDERED: MAGNESIUM HYDROXIDE SUSP 30 ML UDC PO PRN (10:23)
[2019-12-29] MEDS ORDERED: NON-FORMULARY MEDICATION (Prenat.Vits,Cal,Min-Iron-Folic 1 TAB) PO SCH (10:23)
[2019-12-29] MEDS ORDERED: SENNA 8.6 MG TAB PO PRN (10:23)
[2019-12-29] MEDS ORDERED: PROMETHAZINE HCL 25 MG in SODIUM CHLORIDE 0.9% 50 ML IV PRN (10:23)
[2019-12-29] MEDS ORDERED: DIPHTHERIA/TETANUS/PERTUSSIS 0.5 ML SYR/VIAL IM ONE (10:23)
[2019-12-29] MEDS ORDERED: SUPERCREAM 0.870% 15 GM JAR EXT PRN (10:23)
[2019-12-29] MEDS ORDERED: BENZOCAINE 20% AER SPR 82.5 GM CAN EXT PRN (10:23)
[2019-12-29] MEDS ORDERED: HYDROCORTISONE ACETATE 25 MG SUPP PR PRN (10:23)
[2019-12-29] MEDS: OXYTOCIN 20 UNITS in LACTATED RINGER'S 1,000 ML IV SCH ×2 (10:57→20:03)
[2019-12-29] MEDS ORDERED: ACETAMINOPHEN 1,000 MG/100 ML VIAL IV STA (12:58)
[2019-12-29] MEDS: SIMETHICONE 80 MG CHEW PO SCH ×3 (13:00→21:47)
[2019-12-29] MEDS: DOCUSATE SODIUM 100 MG CAP PO SCH (21:47)
[2019-12-30] MEDS ORDERED: KETOROLAC 30 MG/ML VIAL IV PRN (01:24)
[2019-12-30] MEDS ORDERED: diphenhydrAMINE Capsule 25 MG CAP PO PRN (01:24)
[2019-12-30] MEDS ORDERED: ZOLPIDEM TARTRATE 5 MG TAB PO PRN (01:24)
[2019-12-30] MEDS ORDERED: diphenhydrAMINE 50 MG/ML VIAL IV PRN (01:24)
[2019-12-30] MEDS ORDERED: MEPERIDINE HCL 50 MG/ML CARP IV PRN (01:24)
[2019-12-30] MEDS ORDERED: DC INTRASPINAL MORPHINE SCH (01:24)
[2019-12-30 05:58] LABS: Basophils # (auto) 0.01 K/uL (0-0.2); Basophils % (auto) 0.1 %; Eosinophils # (auto) 0.05 K/uL (0-0.5); Eosinophils % (auto) 0.5 %; Hematocrit (blood only) 28.5 % (37-47); Lymphocytes # (auto) 1.46 K/uL (1.2-3.4); Mean Corpuscular Hemoglobin 21.9 pg (25-34); Mean Corpuscular Hgb Conc 31.6 g/dL (32-36); Mean Corpuscular Volume 69.3 fL (80-100); Mean Platelet Volume 9.6 fL (7.4-10.4); Monocytes # (auto) 0.86 K/uL (0.11-0.59); Monocytes % (auto) 8.2 %; Neutrophils # (auto) 7.95 K/uL (1.4-6.5); Neutrophils % (auto) 76.2 %; Platelet Count 173 K/uL (130-400); RDW Coefficient of Variation 17.3 % (11.5-14.5); RDW Standard Deviation 43.3 fL (36.4-46.3); Red Blood Count 4.11 M/uL (4.2-5.4); White Blood Count 10.43 K/uL (4.8-10.8)
--- NOTE | 2019-12-30 06:04 | Obstetrical Progress Note ---
Date of Service <Jorgito Iglesias MD - Last Filed: 12/30/19 07:15> December 30, 2019 Assessment & Plan <Jorgito Iglesias MD - Last Filed: 12/30/19 07:15> (1) S/P : Finn is a 29 y/o female who is POD #1 following repeat LTCS and tubal at 39-2/7 WGA. - Feels well today. Eating well, voiding well, ambulating well. - Pain well controlled with ibuprofen 600mg Q4H PRN. - Routine post-operative care -- continue to promote OOB, ambulation, and diet progression as tolerated - After discharge will have [address] Daigle (2) Francisco Javierka antibody positive: (3) Chlamydia infection affecting : Subjective <Jorgito Iglesias MD - Last Filed: 12/30/19 07:15> Finn is a 29 y/o female who is POD #1 following repeat LTCS and tubal at 39-2/7 WGA. She reports feeling well overall this morning. Endorses some continued abdominal cramping with pain well managed on analgesics. Voiding without difficulty. Tolerating meals overnight and able to ambulate some. Endorses passing gas but not yet bowel movement. Has some persistent lochia with some improvement this morning. Currently breast feeding. Review of Systems Denies fever, chills, sweats Denies shortness of breath, difficulty breathing, chest pain, palpitations, chest pressure. Denies breast pain. Denies dysuria. Denies headache or changes in vision. Physical Exam <Jorgito Iglesias MD - Last Filed: 12/30/19 07:15> General: Alert, oriented. No acute distress. Cardiac: Regular rate and rhythm, no murmurs/rubs/gallops. Respiratory: Clear to auscultation bilaterally a/p, no wheezes/rales/rhonchi. No increased work of breathing. Symmetrical chest rise. No respiratory distress. Abdomen: Soft, nontender, nondistended. Bowel sounds present. Uterus: Uterine fundus firm, palpable 2 cm below umbilicus. Surgical scar clean and healing well. Lower Extremities: No lower extremity edema or swelling. No deep calf pain. Cara's negative bilaterally. Results & Data ([facility]) <Jorgito Iglesias MD - Last Filed: 12/30/19 07:15> Vital Signs (Past 12 Hours) Vital Signs Temp Pulse Resp BP Pulse Ox 12/30/19 04:25 37.2 C 70 18 115/67 98 12/30/19 02:00 18 98 12/30/19 01:30 18 98 12/30/19 00:30 18 98 12/29/19 23:25 36.8 C 72 18 111/66 98 12/29/19 22:00 18 98 12/29/19 21:00 18 98 12/29/19 20:30 18 98 12/29/19 19:40 36.6 C 78 18 109/65 98 12/29/19 19:15 18 96 <Jose Francisco Hidalgo MD - Last Filed: 12/30/19 08:04> [facility] Doing [facility]. Routine care Resident Activity Tracking <Jorgito Iglesias MD - Last Filed: 12/30/19 07:15> Resident Involvement: Resident Care Provided Care Provided: Adult Hospital Medicine and OB Delivery
[2019-12-30 06:50] LABS: Microcytosis Present
[2019-12-30] MEDS: DOCUSATE SODIUM 100 MG CAP PO SCH ×2 (08:07→20:58)
[2019-12-30] MEDS: PRENATAL VITAMIN 1 TAB PO SCH (08:07)
[2019-12-30] MEDS: IBUPROFEN 600 MG TAB PO PRN ×3 (08:07→22:09)
[2019-12-30] MEDS: SIMETHICONE 80 MG CHEW PO SCH ×4 (08:07→20:58)
[2019-12-30] MEDS: FERROUS SULFATE 325 MG TAB PO SCH (08:07)
[2019-12-30] MEDS: oxyCODONE/ACETAMINOPHEN 5mg/325mg TAB PO PRN ×3 (08:08→22:10)
--- NOTE | 2019-12-30 16:17 | Anesthesiology Progress Note ---
Date of Service December 30, 2019 Anesthesia Post Procedure Vital Signs Vital Signs: Temp Pulse Resp BP Pulse Ox 12/30/19 08:10 36.7 C 68 16 109/69 97 12/30/19 04:25 37.2 C 70 18 115/67 98 12/30/19 02:00 18 98 12/30/19 01:30 18 98 12/30/19 00:30 18 98 12/29/19 23:25 36.8 C 72 18 111/66 98 12/29/19 22:00 18 98 12/29/19 21:00 18 98 12/29/19 20:30 18 98 12/29/19 19:40 36.6 C 78 18 109/65 98 12/29/19 19:15 18 96 12/29/19 18:00 18 96 12/29/19 17:00 18 98 12/29/19 16:30 36.8 C 65 18 105/56 L 98 Pain Intensity Abdomen: Pain Intensity: 3 Transfer of Care Handoff Completed per policy Notes Mental Status: alert / awake / arousable and participated in evaluation Nausea / Vomiting: adequately controlled Pain: adequately controlled Airway Patency, RR, SpO2: stable & adequate BP & HR: stable & adequate Hydration State: stable & adequate Neuraxial Anesthesia: was administered and sensory block resolved Anesthetic Complications: no major complications apparent and Pt Satisfied with anesthetic care
[2019-12-30] MEDS ORDERED: bisacodyL 5 MG TABEC PO SCH (20:00)
[2019-12-31] MEDS: oxyCODONE/ACETAMINOPHEN 5mg/325mg TAB PO PRN ×2 (02:02→08:11)
[2019-12-31] MEDS: IBUPROFEN 600 MG TAB PO PRN ×2 (02:02→08:11)
[2019-12-31 06:36] LABS: Hematocrit (blood only) 29.6 % (37-47); Hemoglobin 9.2 g/dL (12.0-16.0)
--- NOTE | 2019-12-31 06:37 | Obstetrical Progress Note ---
Date of Service December 31, 2019 Assessment & Plan (1) S/P : Postoperative from section patient meets discharge criteria as she is ambulating well tolerating an oral diet has minimal bleeding and no extremity pain. Discharge instructions were reviewed and prescriptions were sent to her pharmacy of choice patient advised to call with any concerns and follow-up in the office discussed Subjective Ambulation: ambulating normally Voiding: no voiding problems Diet Tolerance:: regular diet Lochia:: Small Feeding Type:: breast feeding Physical Exam Constitutional WD/WN, vitals as above Gastrointestinal (Abdomen) normal bowel sounds, soft, nontender, no hepatosplenomegaly (Incision clean dry and intact) Results & Data ([facility]) Vital Signs (Past 12 Hours) Vital Signs Temp Pulse Resp BP Pulse Ox 12/31/19 00:10 99.0 F 69 16 111/71 97 12/30/19 20:40 99.5 F 76 16 118/65 98
[2019-12-31] MEDS: PRENATAL VITAMIN 1 TAB PO SCH (08:07)
[2019-12-31] MEDS: DOCUSATE SODIUM 100 MG CAP PO SCH (08:07)
[2019-12-31] MEDS: FERROUS SULFATE 325 MG TAB PO SCH (08:07)
[2019-12-31] MEDS: SIMETHICONE 80 MG CHEW PO SCH (08:07)
[2019-12-31] MEDS ORDERED: bisacodyL 10 MG SUPP PR PRN (08:32)
--- NOTE | 2020-01-02 08:01 | Discharge Summary ---
Date of Service January 02, 2020 Admission HPI Per Admitting Provider 39 weeks gestation 2 prior sections presents for repeat section discussion complicated by the following of an antibody however this issue resolved patient also was has a tubal ligation Discharge Data Consultations 12/29/19 05:43 Consult Anesthesiology Stat Procedures Performed Operation Date: 12/29/19 07:30 Actual Procedures p Section, - Trang Daigle MD, LARA s Post Bilateral Tubal Ligation in LD - Trang Daigle MD, NEPTALIOG Hospital Course (1) S/P : Postoperative from section patient meets discharge criteria as she is ambulating well tolerating an oral diet has minimal bleeding and no extremity pain. Discharge instructions were reviewed and prescriptions were sent to her pharmacy of choice patient advised to call with any concerns and follow-up in the office discussed Coding Level of Care Code None Diagnoses S/P Z98.891
== END 2019-12-31 13:00 | disposition home or self-care (01) | DRG 785 ==
LOC: 4S1 05:39 → EDSTATUS 07:30 → 4S2 10:55
PROC: M.PPTLD (2019-12-29 07:30)